=== PATIENT | female | born 1955 | race Caucasian/White ===

== ENCOUNTER 2017-05-07 10:42 | Emergency (ER) | payer OTHER ==
[~2017-05-07] VITALS: Ht 167.6 cm; Wt 77.3 kg
[~2017-05-07 10:42] MED LIST: FAS500INJ IM; PALB125C PO
[2017-05-07 10:50] VITALS: BP 112/76; PULSE 95; RESP 18; O2SAT 98
--- NOTE | 2017-05-07 11:41 | ED.REPORT ---
HPI-Chest Pain 40 and Over Date of Service May 07, 2017 ED Provider: Daisy Hernández MD The pt is a 61 y/o female with a history of breast cancer who presents to the ED complaining of intermittent sharp chest pain onset this morning. She reports 3 episodes of dizziness and fatigue 3 days ago. The pt c/o associated intermittent numbness with paresthesia when waking up and palpitations. Pt describes her chest pain as "popping" pain. She denies fever and chills. The pt denies a history of heart attack. She presented to the cancer center where she had blood work done this morning. The pt reports having cancer in 2004 leading to lymph node dissection. The pt is presently diagnosed with a cancer and goes for chemotherapy regularly. Nursing Notes Stated Complaint: CHEST PAIN AND DIZZINESS Chief Complaint: Chest Pain Nursing Notes Reviewed: Yes Allergies: Coded Allergies: Iodinated Contrast- Oral and IV Dye (Verified Allergy, Unknown, 01/30/17) Pt states she can't have CT contrast, unclear reason, was pretreated in September. kld Scheduled Palbociclib (Ibrance) 125 Mg Capsule 125 MG PO qd x21dys,7dys off HOLD Miscellaneous Medications Fulvestrant (Faslodex) 250 Mg/Syr Syringe 250 MG IM General Time Seen by MD: 11:40 Chief Complaint Chest pain Hx Obtained From: Patient Arrived By: Walk-in Sudden in Onset?: Yes Onset Occurred: 3 days ago Symptom Duration: Intermittent Location: : Chest left: Chest right Quality: Sharp Radiation: : Does not radiate Severity: Current: Moderate Severity: Maximum: Moderate Recent Healthcare: No recent hospitalization, Recent doctor visit Similar Sx Previous: No Past Medical History Past Medical History Reports: Cancer, Denies: COPD, Congestive heart failure, Hypertension Past Surgical History right breast lymphnodes and lumpectomy Smoking History Never Smoker Social History Alcohol Use: Denies alcohol use Drug Use: Denies drug use Ambulatory Status Independent Review of Systems Constitutional: Denies: Chills, Fever Cardiovascular: Reports: Chest pain, Palpitations Neurologic: Reports: Numbness (with paresthesia) Psychiatric: Reports: Insomnia Complete sys rev & neg: except as marked. Physical Exam Initial Vital Signs Vital Signs (First) Date Time Temp Pulse Resp B/P Pulse Ox O2 Delivery O2 Flow Rate FiO2 05/07/17 10:50 37.4 95 18 112/76 98 Room Air Initial VS: Reviewed Head / Eyes: Atraumatic, Normocephalic Extremities: Vascular intact, Neuro intact Skin: Warm, Dry, No cyanosis Neurologic: Alert, Oriented, Nonfocal Psychiatric: Mood/affect normal, Behavior normal General/Constitutional: Awake, Alert Respiratory / Chest: Atraumatic, Breath sounds NL, Breath sounds = bilat, No respiratory distress, No wheezing No wheezing. No reproducible chest pain. No rashes, chest wall masses, or tumors. Cardiovascular: Heart rate NL, Regular rhythm, Heart sounds NL Abdomen: Atraumatic, Soft, Non-tender Interpretation & Diagnostics ECG Interpretation Time: 11:13 Interpreted by: ED physician Normal ECG Interpretation: Normal ECG w/ rate of... (80) CT Head Interpretation IMPRESSION: No acute intracranial disease process. Dictated by: Blank Rasmussen MD, PhD on 05/07/2017 at 11:45 CT Chest Interpretation IMPRESSION: 1. Small right-sided pleural fluid collection stable compared to 01/31/17. 2. Multiple bilateral lung nodules likely representing pulmonary metastatic disease. Several of the lung nodules have decreased slightly in size compared to prior examination. No new lung nodules are identified. 3. Mediastinal and left axillary metastatic lymphadenopathy slightly decreased in size compared to 01/31/17. No new lymphadenopathy identified. 4. Sclerotic lesion involving the sternum stable compared to prior examinations. Dictated by: Blank Rasmussen MD, PhD on 05/07/2017 at 11:57 Study type: Chest CT no contrast Interpretation / Wet Read by: Interpret - Radiologist Re-Eval/Medical Decision Source of Hx: Old records Time of Eval: 13:38 Re-Evaluation/Progress Note: Pt rechecked. Discussed CT results with pt, informing her of decreased nodule size. Informed pt of diagnosis and plan for discharge. The pt understands and agrees with plan for discharge. F/U instructions and RTER warnings given. All questions addressed at this time. Time of Eval: 11:57 Re-Evaluation/Progress Note: Informed pt of plan for brain and chest CT. Discussed current results with pt, informing her that there are no signs of significant infection or heart failure. Informed pt that her RBC is normal without signs of anemia, liver and kidney were normal, and electrolytes were normal. Informed the pt that her ECG is reassuring without signs of [place]. All questions addressed. Counseled Regarding: Diagnosis, Lab results, Need for follow-up, When/why to return to ED Discharge & Departure Primary Impression: Chest wall pain Additional Impression: Metastatic breast cancer Disposition: Home Discharge Condition All VS Reviewed: Yes Condition: Stable Additional Instructions: I am so glad to let you know that I did not find anything of interest in your blood work drawn this morning or the CT scan of your brain and your chest. I'm also rather excited to tell you that some of the metastatic lesions seen in your lungs previously, seen to be a bit smaller. I don't have a full explanation for the pain you're feeling this point. I suspect that it is musculoskeletal. It does not appear to be related to your cancer. It does not appear to be life-threatening I wish you the best Referrals: Didier Wilkes MD (PCP) Scribe Attestation Portions of this note were transcribed by Leta Engle and Sara Dill. I , Dr. Hernández personally performed the history, physical exam and medical decision-making; I reviewed and confirmed the accuracy of the information in the transcribed note. Signed by: Leta Engle and Sara Dill, Mallika, 05/07/17. copies to: Didier Wilkes MD, Shawna L MD May 07, 2017 11:41 Leta Engle May 07, 2017 12:03 Sara Bush May 07, 2017 13:53
[2017-05-07 12:45] VITALS: BP 108/69; PULSE 82; RESP 19; O2SAT 98
--- NOTE | 2017-05-07 12:52 | DRSVH ---
PROCEDURE: CT BRAIN WITHOUT CONTRAST ([id number]) INDICATIONS: intermittent parasthesia TECHNIQUE: Noncontrast 4.5 mm thick angled axial sections acquired from the foramen magnum to the vertex, with c oronal reformats. COMPARISON: [facility], MR, MR BRAIN W&WO CON, 09/21/2016, 14:43. FINDINGS: Image quality: Excellent. CSF spaces: Basal cisterns are patent. No extra-axial fluid collections. The ventricles are symmet tomás in size and shape. Brain: No intracranial bleeds or masses. There is cerebral volume loss for age, with resultant vent ricular and sulcal prominence. There are periventricular and deep white matter chronic small vessel ischemic changes. There is intracranial internal carotid artery atherosclerosis. Skull and face: Calvarium and visualized facial bones appear intact, without suspicious lesions. Sinuses: Visualized sinuses and mastoids are clear. IMPRESSION: No acute intracranial disease process. Dictated by: Blank Rasmussen MD, PhD on 05/07/2017 at 11:45 Approved by: Blank Rasmussen MD, PhD on 05/07/2017 at 11:51
--- NOTE | 2017-05-07 13:12 | DRSVH ---
PROCEDURE: CT CHEST WITHOUT CONTRAST ([id number]) INDICATIONS: Right lung and chest wall pain TECHNIQUE: Noncontrast 5 mm thick sections acquired from the pulmonary apices to the posterior costophrenic angl es. 7 mm thick coronal and sagittal MIP reformats were then acquired. For radiation dose reduction, the following was used: automated exposure control, adjustment of mA and/or kV according to patient size. COMPARISON: [facility], CT, CT CHEST ABD PELVIS W CON, 09/21/2016, 11:05. [facility], CT, CT CHEST WO CON, 09/06/2016, 14:26. [facility], CT, CT CHEST ABD PELVIS W C ON, 01/31/2017, 8:35. FINDINGS: Image quality: Excellent. Lungs and pleura: No acute air space opacities. Numerous bilateral lung nodules concerning for pulmo nary metastatic disease are stable in number compared to 01/31/2017. Several of the bilateral lung nod ules have decreased in size compared to the prior CT scan. Small right-sided pleural effusion is sta ble compared to prior CT scan. No left-sided pleural fluid collections. No pneumothorax. Central and peripheral airways are patent and normal in caliber. Mediastinum: Heart size is normal. No pericardial effusion. Mediastinal lymph nodes have decreased in size compared to 01/31/2017. Right paratracheal reference node measures 1 cm short axis in the curr ent study (1.3 cm previously). Thoracic aorta and central pulmonary arteries are normal in size. Eso phagus is normal in caliber. No hiatal hernia. Bones and chest wall: Sclerotic lesion in the sternum is stable compared to prior examination.. No v ertebral body compression fractures. Enlarged left subpectoral/left axillary lymph node is slightly decreased compared to 01/31/17 measuring 0.9 cm in short axis in the current study (1.1 cm previously. No new axillary lymphadenopathy identified. Surgical clips in the right axilla are stable in appeara nce. No supraclavicular adenopathy by size criteria. Abdomen: Visualized upper abdominal solid organs and bowel loops appear normal in the absence of con trast. IMPRESSION: 1. Small right-sided pleural fluid collection stable compared to 01/31/17. 2. Multiple bilateral lung nodules likely representing pulmonary metastatic disease. Several of the l nichole nodules have decreased slightly in size compared to prior examination. No new lung nodules are id entified. 3. Mediastinal and left axillary metastatic lymphadenopathy slightly decreased in size compared to . No new lymphadenopathy identified. 4. Sclerotic lesion involving the sternum stable compared to prior examinations. Dictated by: Blank Rasmussen MD, PhD on 05/07/2017 at 11:57 Approved by: Blank Rasmussen MD, PhD on 05/07/2017 at 12:10
[2017-05-07 14:06] VITALS: BP 106/68; PULSE 92; RESP 14; O2SAT 97
== END 2017-05-07 14:05 | disposition home or self-care (01) ==
LOC: SED 10:42
DX: R07.89 Other chest pain (principal); C50.919 Malignant neoplasm of unspecified site of unspecified female breast; C79.89 Secondary malignant neoplasm of other specified sites; R20.0 Anesthesia of skin; R00.2 Palpitations; R42 Dizziness and giddiness; R53.83 Other fatigue